=== PATIENT | female | born 1985 | race Caucasian/White ===

== ENCOUNTER 2021-07-28 09:27 | Emergency (ER) | payer SELFPAY ==
[2021-07-28 09:30] VITALS: BP 169/96; PULSE 94; RESP 18; TEMP 36.8; O2SAT 94; BMI 37.3
--- NOTE | 2021-07-28 10:16 | HMH.EDUTC ---
[facility] Disposition Clinical Impression: COVID-19 virus test result unknown, Wheezing Disposition: Home, Self-Care Condition on Discharge: Good Instructions: How to Care for Someone with COVID-19, DI for COVID-19 (Suspected or Confirmed ) Additional Instructions: covid swab was sent to lab, call later today for results. self isolate until test results are known to be negative No sign of a bacterial infection. Likely viral. Viruses can take 7-14 days to run their course. Nasal saline and bulb syringe or nose Leticia to remove nasal drainage to help with nasal congestion. Hard to eat, drink, sleep with nasal congestion so important to keep this cleaned out. Monitor temp. Tylenol or Motrin as needed for pain or fever Encourage fluids, water, Gatorade, Powerade, Pedialyte if /toddler/child Warm salt water gargles Warm fluids Sore throat lozenges Sleep elevated Humidifier/vaporizer Follow-up immediately for new or worsening symptoms or no noticeable improvement over the next 48-72 hours. Prescriptions: Albuterol Sulfate [Albuterol 0.083% 2.5mg/3mL neb] 2.5 mg IH Q6 PRN 30 Days #1 kit PRN Reason: Wheezing Transmission Status: [facility] predniSONE [Prednisone 20mg Tab] 20 mg PO BID #10 tab Transmission Status: [facility] Referrals: Susan East [Primary Care Provider] - Time of Disposition: 10:24 Medical Decision Making - Kennedy Inquiry Pt receiving controlled substance: No Vital Signs: 07/28/21 09:30 Temperature 98.2 F Temperature Source Oral Pulse Rate [Right Brachial] 94 H Respiratory Rate 18 Blood Pressure [Right Arm] 169/96 H Blood Pressure Mean [Right Arm] 120 Blood Pressure Source [Right Arm] Automatic Cuff Blood Pressure Position [Right Arm] Sitting 02 Sat by Pulse Oximetry 94 L Oxygen Delivery Method Room Air Orders (Tests/Meds): ORDERS Category Date Time Status Covid-19 Nasal PCR ([facility]) Routine Lab 07/28/21 09:40 Received [facility] HPI - General Chief complaint: Urgent [facility] Stated complaint: soa, cough, congestion covid test Time Seen by Provider: 07/28/21 10:16 Mode of Arrival: Ambulatory Source of Information: Patient Limitations: No Limitations Description of Symptoms (Recalled from Triage Doc. by RN): COVID TEST D/T EXPOSURE. C/O COUGH, SOA AND CONGESTION HEENT Symptoms (Recalled from RN notes): Yes Resp Symptoms (Recalled from RN notes): Yes Skin Symptoms (Recalled from RN notes): No MS Symptoms (Recalled from RN notes): No Functional Status (Recalled from RN notes): WNL - History of Present Illness Provider Complaint: 36 yr old female presents for cough,soa,wheezing,nasal congestion and runny nose. has been exposed to covid - Related Data Previous Rx's Medication Instructions Recorded Acetaminophen 1,000 mg PO TID PRN #60 tab 01/28/20 Ibuprofen [Ibuprofen 600mg 600 mg PO Q6H #30 tab 01/28/20 Tablet] Sulfamethoxazole/Trimethoprim 1 each PO BID #20 tab 01/28/20 [Bactrim DS tablet] cephALEXin [cephALEXin 500mg 500 mg PO Q8H #30 cap 01/28/20 capsule*] Albuterol Sulfate [Albuterol 2.5 mg IH Q6 PRN 30 Days #1 kit 07/28/21 0.083% 2.5mg/3mL neb] predniSONE [Prednisone 20mg 20 mg PO BID #10 tab 07/28/21 Tab] Allergies Allergy/AdvReac Type Severity Reaction Status Date / Time No Known Allergies Allergy Verified 07/28/21 10:14 - Worker's Comp Is this a Worker's Comp case?: No [facility] History - Hepatitis A Screen Drug use history?: No High risk sexual behaviors?: No History of sexually transmitted infection?: No Currently employed?: No Childcare worker?: No Do you have indoor plumbing?: Yes Do you have electricity?: Yes Attestation statement:: This patient has been screened for Hepatitis A risk factors. I have reviewed the patient's past medical history: Yes - Social History Alcohol Intake: never Occupational Status: employed Housing: house ROS Obtain
[2021-07-28 10:20] VITALS: BP 169/96; PULSE 94; RESP 18; TEMP 36.8; O2SAT 94
== END 2021-07-28 10:27 | disposition home or self-care (01) ==
PROVIDERS: Emergency Provider Nurse Practitioner Family; PCP Family Medicine
DX: Z20.822 Contact with and (suspected) exposure to COVID-19 (principal)
CPT/HCPCS: 99202; G0463; U0003

== ENCOUNTER 2021-11-05 03:41 | Emergency (ER) | payer SELFPAY ==
[2021-11-05 03:42] VITALS: BP 177/111; PULSE 97; RESP 18; TEMP 37.1; O2SAT 99; BMI 41.1
[2021-11-05 04:03] VITALS: BMI 41.1
--- NOTE | 2021-11-05 04:04 | CT_ITS ---
PROCEDURE INFORMATION: Exam: CT Maxillofacial With Contrast Exam date and time: 11/05/2021 4:04 AM Age: 36 years old Clinical indication: Mass, lump, or swelling; Maxilla; Patient HX: Left sided facial swelling TECHNIQUE: Imaging protocol: Computed tomography images of the face with intravenous contrast. Radiation optimization: All CT scans at this facility use at least one of these dose optimization techniques: automated exposure control; mA and/or kV adjustment per patient size (includes targeted exams where dose is matched to clinical indication); or iterative reconstruction. Contrast material: ISOVUE; Contrast volume: 75 ml; Contrast route: IV; COMPARISON: MAXW CT MAXILLOFACIAL W/CONTRAST 10/13/2017 12:06 AM FINDINGS: Orbital cavity: Orbits are normal. Globes are unremarkable. Bones/joints: No acute fracture. Paranasal sinuses: Left greater than right maxillary and ethmoid sinusitis. Soft tissues: Localized left facial and perimandibular swelling and induration. No underlying fluid collection or mass. Dental: Bilateral upper missing teeth with bicuspid and pre molar caries. IMPRESSION: 1. Localized probable inflammatory changes involving the left facial and perimandibular region consistent with cellulitis. No definite soft tissue abscess. 2. Bilateral upper missing teeth with bicuspid and pre molar caries. Dental correlation recommended. 3. Left greater than right maxillary and ethmoid sinusitis.
--- NOTE | 2021-11-05 04:19 | HMH.EDSKAF ---
ED Disposition Clinical Impression: Facial cellulitis, SIRS (systemic inflammatory response syndrome) Hypertension Qualifiers: Hypertension type: primary hypertension Qualified Code(s): I10 - Essential (primary) hypertension Disposition: Home, Self-Care Condition on Discharge: Good Instructions: DI for Cellulitis -- Adult Additional Instructions: use meds and see pcp for follow up Prescriptions: cephALEXin [cephALEXin 500mg capsule*] 500 mg PO TID #30 cap Transmission Status: Pending to [facility] clindamycin HCL [Clindamycin HCl] 300 mg PO TID #30 cap Transmission Status: Pending to [facility] Referrals: Susan Tracy [Primary Care Provider] - - Critical Care Critical Care Time: No Attestation: On 11/05/21, the high probability of a clinically significant, sudden or life threatening deterioration of the following system(s) required my full and direct attention, intervention and personal management. The time I documented below is in addition to time spent performing reported procedures but includes the following listed in this critical care notation. Medical Decision Making - Medical Records Medical records reviewed: Yes: I reviewed the patient's medical records. - Kennedy Inquiry Pt receiving controlled substance: No Vital Signs: 11/05/21 03:42 11/05/21 04:33 11/05/21 06:28 Temperature 98.8 F Temperature Source Oral Pulse Rate 83 83 Pulse Rate [Apical] 97 H Respiratory Rate 18 Blood Pressure 168/105 H Blood Pressure [Right Arm] 177/111 H Blood Pressure Mean [Right Arm] 133 Blood Pressure Source [Right Arm] Automatic Cuff Blood Pressure Position [Right Arm] Sitting 02 Sat by Pulse Oximetry 99 96 95 Oxygen Delivery Method Room Air Room Air Room Air - Lab Data Lab results reviewed: Yes: I reviewed the patient's lab results. Lab Results 11/05/21 04:14: WBC 16.1 H, RBC 5.21, Hgb 15.6, Hct 45.0, MCV 86.4, MCH 29.9, MCHC 34.6, RDW 12.6, Plt Count 348, MPV 6.8 L, Neut % (Auto) 73.6, Lymph % (Auto) 19.7, [place] % (Auto) 4.4, Eos % (Auto) 1.7, Baso % (Auto) 0.6, Neut # (Auto) 11.8 H, Lymph # (Auto) 3.2, [place] # (Auto) 0.7, Eos # (Auto) 0.3, Baso # (Auto) 0.1, Total Counted 100, Neutrophils % (Manual) 73, Band Neutrophils % 1.0, Lymphocytes % (Manual) 21, Monocytes % (Manual) 5, Platelet Estimate Normal, RBC Morphology Normal, ESR 15 11/05/21 04:14: Sodium 136, Potassium 3.8, Chloride 104, Carbon Dioxide 26, Anion Gap 9.8, BUN 5 L, Creatinine 0.50 L, Estimated Creat Clear 262, Estimated GFR 138, Est GFR ( Amer) 167, Glucose 107 H, Calcium 8.9, Total Bilirubin 0.6, AST 29, ALT 29, Alkaline Phosphatase 76, C-Reactive Protein 21.5 H, Total Protein 6.9, Albumin 4.0, Globulin 2.9, Albumin/Globulin Ratio 1.4, Procalcitonin 0.040 11/05/21 04:14: Serum HCG, Qual Negative Result diagrams: 11/05/21 04:14 11/05/21 04:14 Orders (Tests/Meds): ED MEDICATIONS Generic Name Dose Route Start Last Admin Trade Name Freq PRN Reason Stop Dose Admin Sodium Chloride 1,000 mls @ 999 mls/hr 11/05/21 04:15 11/05/21 04:21 Sod Chlor 0.9% 1000ml Bag IV 11/05/21 05:15 999 mls/hr .Q1H1M JOSELITO Administration Ceftriaxone Sodium 1 gm/ 50 mls @ 100 mls/hr 11/05/21 06:30 11/05/21 06:31 Sodium Chloride IV 11/19/21 06:29 100 mls/hr Q24H JOSELITO Administration Discontinued Medications Generic Name Dose Route Start Last Admin Trade Name Freq PRN Reason Stop Dose Admin Iopamidol 75 ml 11/05/21 05:29 11/05/21 05:31 Iopamidol-370 (76%);100ml Bottle IV 11/05/21 05:30 75 ml ONCE ONE Administration Ketorolac Tromethamine 30 mg 11/05/21 04:04 11/05/21 04:21 Ketorolac 30mg/Ml Vial IV 11/05/21 04:05 30 mg ONCE ONE Administration Methylprednisolone Sodium Succinate 125 mg 11/05/21 04:04 11/05/21 04:21 Methylprednisolone Sod Succ 125mg Vial IV 11/05/21 04:05 125 mg ONCE ONE Administration Sodium Chloride 10 ml 11/05/21 05:29 11/05/21 05:32
[2021-11-05 04:28] LABS: Basophils # 0.1 K/mm3 (0-0.2); Basophils % 0.6 % (0.1-2.0); Eosinophils # 0.3 K/mm3 (0.0-0.4); Eosinophils % 1.7 % (0.1-12.0); Hemoglobin 15.6 g/dL (12.2-16.2); Lymphocytes # 3.2 K/mm3 (0.7-4.5); Lymphocytes % 19.7 % (10-50); Mean Corpuscular HGB Conc 34.6 g/dL (31.8-35.4); Mean Corpuscular Hemoglobin 29.9 pg (27.0-31.2); Mean Corpuscular Volume 86.4 fl (81-99); Mean Platelet Volume 6.8 fl (7.4-10.4); Monocytes # 0.7 K/mm3 (0.1-1.0); Monocytes % 4.4 % (1.7-9.3); Neutrophils # 11.8 K/mm3 (1.8-7.8); Neutrophils % 73.6 % (37.0-80.0); Platelet Count 348 K/mm3 (142-424); Red Blood Count 5.21 M/mm3 (4.20-5.40); Red Cell Distribution Width 12.6 % (11.5-17.5); White Blood Count 16.1 K/mm3 (4.8-10.8)
[2021-11-05 04:33] VITALS: BP 168/105; PULSE 83; O2SAT 96
[2021-11-05 04:33] LABS: Alanine Aminotransferase 29 U/L (12-78); Albumin/Globulin Ratio 1.4 (1.1-1.8); Alkaline Phosphatase 76 U/L (38-126); Anion Gap 9.8 mEq/L (5-15); Aspartate Amino Transferase 29 U/L (14-36); Bilirubin,Total 0.6 mg/dl (0.2-1.3); Blood Urea Nitrogen 5 mg/dl (7-17); Calcium 8.9 mg/dl (8.4-10.2); Carbon Dioxide 26 mmol/L (22.0-30.0); Chloride 104 mmol/L (98-107); Creatinine Clearance Estimated 262 mL/min (50-200); Estimated Glomerular Filt Rate 138 ml/min (>60); GFR (African American) 167 ML/MIN (>60); Globulin 2.9 g/dL (1.3-3.2); Glucose 107 mg/dl (74-100); Potassium 3.8 mmoL/L (3.5-5.1); Sodium 136 mmol/L (136-145); Total Protein,Serum 6.9 g/dl (6.3-8.2)
[2021-11-05 04:38] LABS: C-Reactive Protein 21.5 mg/L (0-4)
[2021-11-05 04:39] LABS: MANUAL DIFFERENTIAL MANUAL DIFFERENTIAL (MANUAL DIFF)
[2021-11-05 04:55] LABS: HCG Qualitative, Serum Negative (Negative)
[2021-11-05 06:20] LABS: Lymphocytes % 21 % (10-50); Monocytes % 5 % (2-9); Neutrophils % 73 % (42-76); Platelet Estimate Normal; RBC Morphology Normal; Total Cells Counted 100
[2021-11-05 06:28] VITALS: PULSE 83; O2SAT 95
[2021-11-05 07:10] LABS: Erythrocyte Sedimentation Rate 15 mm/hr (0-20)
[2021-11-05 07:30] VITALS: BP 160/96; PULSE 82; RESP 18; TEMP 36.8; O2SAT 95
[2021-11-05 07:44] VITALS: BP 178/100; PULSE 88; RESP 20; TEMP 36.8; O2SAT 98
== END 2021-11-05 07:44 | disposition home or self-care (01) ==
PROVIDERS: Emergency Provider Emergency Medicine; PCP Family Medicine
DX: L03.211 Cellulitis of face (principal); I10 Essential (primary) hypertension; R65.10 Systemic inflammatory response syndrome (SIRS) of non-infectious origin without acute organ dysfunction
CPT/HCPCS: 70487; 80053; 84145; 84703; 85007; 85025; 85651; 86140; 96365; 96367; 96375; 99283; Q9967

== ENCOUNTER 2021-11-07 09:17 | Emergency (ER) | payer SELFPAY ==
[2021-11-07 10:33] VITALS: BP 148/96; PULSE 84; RESP 19; TEMP 37; O2SAT 98; BMI 36.6
--- NOTE | 2021-11-07 10:47 | HMH.EDUTC ---
[facility] Disposition Clinical Impression: Facial cellulitis Disposition: Home, Self-Care Condition on Discharge: Good Instructions: Cellulitis, Clindamycin and Benzoyl Peroxide Topical, Clindamycin, Cephalexin Additional Instructions: *Take antibiotic(s) and be sure to take as ordered for the FULL length of time although you may be feeling better or start to see improvement in the next 24-48 hours *Monitor closely. Outlined redness so that you can monitor easier. Follow up immediately for new or worsening symptoms including but not limited to redness, swelling, streaking from site fever or chills. *Warm compress 15 minutes 3-4 times day *Never squeeze or pop these on your own. Seek immediate medical attention next time this occurs *Monitor Temp. Tylenol every 4 hours as needed and ibuprofen every 6 hours as needed (as long as your primary care doctor has told you that it is ok to take both. For fever, aches, pain. ER if no less that 101 despite Tylenol and ibuprofen Follow up with your family doctor/primary care physician in the next 48-72 hours if no improvement Make sure to follow up with Dentist Go straight to ER if any worsening of swelling in or around eye Follow up with your Family Doctor if no improvement in the next 48-72 hours and to ER if any worsening Referrals: Susan Tracy [Primary Care Provider] - As needed Forms: Work/School Release Time of Disposition: 10:56 Medical Decision Making - Kennedy Inquiry Pt receiving controlled substance: No Kennedy was queried for this patient: No Vital Signs: 11/07/21 10:33 11/07/21 11:04 Temperature 98.6 F 98.6 F Temperature Source Oral Oral Pulse Rate 84 Pulse Rate [Right Radial] 84 Respiratory Rate 19 18 Blood Pressure 148/96 H Blood Pressure [Right Arm] 148/96 H Blood Pressure Mean [Right Arm] 113 Blood Pressure Source Automatic Cuff Blood Pressure Source [Right Arm] Automatic Cuff Blood Pressure Position Sitting Blood Pressure Position [Right Arm] Sitting 02 Sat by Pulse Oximetry 98 Oxygen Delivery Method Room Air Room Air Medical Decision Narrative: Patient states that this morning her swelling was worse but has gone down now Patient had pictures of when she first came to the ED and verses now swelling appears improved Patient states that she has been on oral antibiotics for 1 1/2 days but swelling in much improved at this time and she was having pain in her face and wanted to get something discussed Ibuprofen and patient states that she has some at home Patient educated to follow up and if any worsening of swelling needed to return immediately to the ED [facility] HPI - General Stated complaint: facial cellulitis Time Seen by Provider: 11/07/21 10:47 Mode of Arrival: Ambulatory Source of Information: Patient Limitations: No Limitations Description of Symptoms (Recalled from Triage Doc. by RN): Pt stated that she has facial swelling left eye, and upper lip. She seen dione, and has been on cephalexin. HEENT Symptoms (Recalled from RN notes): Yes Resp Symptoms (Recalled from RN notes): No Skin Symptoms (Recalled from RN notes): Yes MS Symptoms (Recalled from RN notes): No Functional Status (Recalled from RN notes): n/a - History of Present Illness Provider Complaint: Patient states that she was seen in the ED on the States that she was having some facial cellulitis and swelling States that she was given IV antibiotics and started on oral antibiotics but she thought it would look better by now she is still having some swelling in the left side of face States that also she has been having some pain there States that swelling is improved since she got up this morning and got moving around but was worried so she came in - Related Data Home Medications Medication Instructions Recorded Confirmed Acetaminophen 1,000 mg PO TID PRN 11/05/21 11/07/21 Ibuprofen [Ibuprofen 600mg 600 mg PO Q6H 11/05/21 11/07/21 Tablet] cephALEXin [cephALEXin 500mg 500
[2021-11-07 11:04] VITALS: BP 148/96; PULSE 84; RESP 18; TEMP 37; O2SAT 98
== END 2021-11-07 11:04 | disposition home or self-care (01) ==
PROVIDERS: Emergency Provider Nurse Practitioner; PCP Family Medicine
DX: L03.211 Cellulitis of face (principal); F17.210 Nicotine dependence, cigarettes, uncomplicated
CPT/HCPCS: 99202; G0463

== ENCOUNTER → 2021-12-31 09:34 | Outpatient (CLI) | payer OTHER, SELFPAY ==
[2022-01-01 08:24] LABS: Covid-19 Nasal PCR Sendout Lex POSITIVE
== END ==
PROVIDERS: Visit Provider Nurse Practitioner
DX: U07.1 COVID-19 (principal)
CPT/HCPCS: C9803; U0004; U0005

== ENCOUNTER → 2022-03-21 15:08 | Outpatient (CLI) | payer BC, SELFPAY ==
--- NOTE | 2022-03-21 15:16 | US_ITS ---
FINAL REPORT CLINICAL HISTORY: MENORRHAGIA WITH REGULAR CYCLE FINDINGS: Transvaginal sonographic images of the pelvis were obtained. The uterus measures 9.4 x 6.0 x 7.6 cm. There are at least 2 uterine fibroids measuring 3.1 and 3.0 cm. There is endometrial thickness measuring 13 mm which is in the upper limits of normal. The right ovary measures 2.9 x 2.0 x 2.8 cm. The left ovary measures 4.0 by 2.6 x 2.6 cm. No free fluid or adnexal mass is identified. IMPRESSION: Fibroid uterus. Reviewed, Interpreted and Dictated by Gelacio Erwin III, MD Transcribed by Martha Brito Authenticated by Gelacio Erwin III, MD on 03/24/2022 08:04:23 AM [facility]
== END ==
LOC: RAD 15:09
PROVIDERS: PCP Family Medicine; Visit Provider Nurse Practitioner
DX: N92.0 Excessive and frequent menstruation with regular cycle (principal)
CPT/HCPCS: 76830

== ENCOUNTER → 2022-03-24 16:25 | Outpatient (CLI) | payer BC, SELFPAY ==
[2022-03-24 17:37] LABS: Hemoglobin A1C 5.7 % (4.0-6.0)
[2022-03-24 18:04] LABS: Alanine Aminotransferase 37 U/L (12-78); Albumin Level 4.4 g/dl (3.5-5.0); Albumin/Globulin Ratio 1.7 (1.1-1.8); Alkaline Phosphatase 76 U/L (38-126); Anion Gap 12.8 mEq/L (5-15); Aspartate Amino Transferase 25 U/L (14-36); Bilirubin,Total 0.4 mg/dl (0.2-1.3); Blood Urea Nitrogen 11 mg/dl (7-17); Calcium 9.7 mg/dl (8.4-10.2); Carbon Dioxide 26 mmol/L (22.0-30.0); Chloride 102 mmol/L (98-107); Cholesterol 245 mg/dl (140-200); Estimated Glomerular Filt Rate 178 ml/min (>60); GFR (African American) 215 ML/MIN (>60); Globulin 2.6 g/dL (1.3-3.2); Glucose 92 mg/dl (74-100); HDL Cholesterol 35 mg/dl (40-60); Potassium 3.8 mmoL/L (3.5-5.1); Sodium 137 mmol/L (136-145); Triglycerides 281 mg/dl (30-150); VLDL Cholesterol 56 mg/dL (0-40)
[2022-03-24 18:05] LABS: Basophils # 0.2 K/mm3 (0-0.2); Basophils % 1.1 % (0.1-2.0); Eosinophils # 0.1 K/mm3 (0.0-0.4); Eosinophils % 0.4 % (0.1-12.0); Hematocrit 46.4 % (37.0-47.0); Hemoglobin 16.2 g/dL (12.2-16.2); Lymphocytes % 28.2 % (10-50); Mean Corpuscular Hemoglobin 30.1 pg (27.0-31.2); Mean Corpuscular Volume 86.1 fl (81-99); Mean Platelet Volume 7.9 fl (7.4-10.4); Monocytes # 0.5 K/mm3 (0.1-1.0); Monocytes % 3.6 % (1.7-9.3); Neutrophils # 9.4 K/mm3 (1.8-7.8); Neutrophils % 66.6 % (37.0-80.0); Platelet Count 418 K/mm3 (142-424); Red Blood Count 5.39 M/mm3 (4.20-5.40); Red Cell Distribution Width 13.8 % (11.5-17.5); White Blood Count 14.1 K/mm3 (4.8-10.8)
[2022-03-24 18:15] LABS: Direct LDL Cholesterol 138.52 mg/dL (100-129)
[2022-03-24 18:31] LABS: 25-OH Vitamin D, Total < 12.8 ng/mL (30-100)
[2022-03-24 18:34] LABS: Thyroid Stimulating Hormone 1.28 uIU/mL (0.465-4.68)
[2022-03-24 18:53] LABS: Vitamin B12 402 pg/mL (239-931)
[2022-03-26 09:24] LABS: FSH 3.2 mIU/mL (.); LH 6.1 mIU/mL (.)
[2022-03-29 01:10] LABS: Estrogen 487 pg/mL (.)
== END ==
LOC: LAB 16:26
PROVIDERS: Visit Provider Nurse Practitioner
DX: N92.0 Excessive and frequent menstruation with regular cycle (principal); E55.9 Vitamin D deficiency, unspecified; Z13.21 Encounter for screening for nutritional disorder; Z13.29 Encounter for screening for other suspected endocrine disorder; Z13.1 Encounter for screening for diabetes mellitus; Z13.220 Encounter for screening for lipoid disorders
CPT/HCPCS: 36415; 80053; 80061; 82306; 82607; 82670; 82672; 83001; 83002; 83036; 84443; 85025

== ENCOUNTER 2022-06-27 20:21 | Emergency (ER) | payer BC, SELFPAY ==
[2022-06-27 20:36] VITALS: BP 180/110; PULSE 80; RESP 18; TEMP 36.8; O2SAT 99; BMI 37.4
--- NOTE | 2022-06-27 21:15 | HMH.EDEXTP ---
ED Disposition Clinical Impression: Cellulitis Qualifiers: Site of cellulitis: extremity Site of cellulitis of extremity: lower extremity Laterality: right Qualified Code(s): L03.115 - Cellulitis of right lower limb Disposition: Home, Self-Care Condition on Discharge: Good Instructions: Cellulitis Additional Instructions: We will attempt to treat this as a cellulitis in your foot. You will need to follow-up closely with your primary care physician for a right lower extremity ultrasound. Please return to the ED immediately if you get any shortness of breath or chest pain. Prescriptions: Sulfamethoxazole/Trimethoprim [Bactrim DS tablet] 1 each PO BID #10 tab Transmission Status: Received by [facility] Referrals: Doris Prescott APRN [Primary Care Provider] - - Critical Care Critical Care Time: No Attestation: On 06/27/22, the high probability of a clinically significant, sudden or life threatening deterioration of the following system(s) required my full and direct attention, intervention and personal management. The time I documented below is in addition to time spent performing reported procedures but includes the following listed in this critical care notation. Medical Decision Making - Kennedy Inquiry Pt receiving controlled substance: No Kennedy was queried for this patient: No Vital Signs: 06/27/22 20:36 Temperature 98.3 F Temperature Source Oral Pulse Rate [Apical] 80 Respiratory Rate 18 Blood Pressure [Right Arm] 180/110 H Blood Pressure Mean [Right Arm] 133 Blood Pressure Source [Right Arm] Automatic Cuff Blood Pressure Position [Right Arm] Sitting 02 Sat by Pulse Oximetry 99 Oxygen Delivery Method Room Air - Lab Data Lab results reviewed: Yes: I reviewed the patient's lab results. Lab Results 06/27/22 21:40: WBC 13.5 H, RBC 5.10, Hgb 15.0, Hct 45.7, MCV 89.6, MCH 29.4, MCHC 32.8, RDW 13.3, Plt Count 351, MPV 7.3 L, Neut % (Auto) 64.5, Lymph % (Auto) 29.7, [place] % (Auto) 2.9, Eos % (Auto) 1.8, Baso % (Auto) 1.0, Neut # (Auto) 8.7 H, Lymph # (Auto) 4.0, [place] # (Auto) 0.4, Eos # (Auto) 0.3, Baso # (Auto) 0.1, ESR 5 06/27/22 21:40: D-Dimer 0.60 H 06/27/22 21:40: Sodium 138, Potassium 3.4 L, Chloride 105, Carbon Dioxide 29, Anion Gap 7.4, BUN 9, Creatinine 0.50 L, Estimated Creat Clear 243, Estimated GFR 137, Est GFR ( Amer) 166, Glucose 106 H, Calcium 8.9, Total Bilirubin 0.2, AST 30, ALT 29, Alkaline Phosphatase 83, C-Reactive Protein 5.8 H, Total Protein 6.6, Albumin 3.9, Globulin 2.7, Albumin/Globulin Ratio 1.4 Result diagrams: 06/27/22 21:40 06/27/22 21:40 Medical Decision Narrative: In review this is a 37-year-old female who presents with right foot swelling. Hemodynamically stable and nontoxic-appearing. Vitals are normal and she is not tachycardic. Her physical exam shows no evidence of lower leg swelling or tenderness but does have some very minimal swelling and erythema to her right foot. This could be consistent with a cellulitis but I do not think it is completely unreasonable to try to rule out possible DVT with D-dimer. D-dimer was elevated at 0.6 which is just barely over normal. This could be due to an inflammatory response especially in the setting of her having a white count of 13. I had a shared discussion with the patient about whether or not to start her on a anticoagulation at this time and she would like to elect to go with antibiotics at this time to see if it is truly just a cellulitis and hold off on anticoagulation. I think this is reasonable if we have her follow-up on Thursday with her PCP in order to set up an ultrasound to evaluate her right lower extremity and I gave her extremely strict return precautions. At this point stable for discharge. Return precautions given. Extremity Problem HPI - General Chief complaint: Extremity Injury, Lower Stated complaint: Possible Blood Clot R Leg Time Seen by Provider: 06/27/22 20:40 Mode of Arrival: Ambulatory
[2022-06-27 21:49] LABS: Basophils # 0.1 K/mm3 (0-0.2); Eosinophils # 0.3 K/mm3 (0.0-0.4); Eosinophils % 1.8 % (0.1-12.0); Hematocrit 45.7 % (37.0-47.0); Lymphocytes % 29.7 % (10-50); Mean Corpuscular HGB Conc 32.8 g/dL (31.8-35.4); Mean Corpuscular Hemoglobin 29.4 pg (27.0-31.2); Mean Corpuscular Volume 89.6 fl (81-99); Mean Platelet Volume 7.3 fl (7.4-10.4); Monocytes # 0.4 K/mm3 (0.1-1.0); Monocytes % 2.9 % (1.7-9.3); Neutrophils # 8.7 K/mm3 (1.8-7.8); Neutrophils % 64.5 % (37.0-80.0); Platelet Count 351 K/mm3 (142-424); Red Cell Distribution Width 13.3 % (11.5-17.5); White Blood Count 13.5 K/mm3 (4.8-10.8)
[2022-06-27 22:02] LABS: Alanine Aminotransferase 29 U/L (12-78); Aspartate Amino Transferase 30 U/L (14-36); Blood Urea Nitrogen 9 mg/dl (7-17); Calcium 8.9 mg/dl (8.4-10.2); Carbon Dioxide 29 mmol/L (22.0-30.0); Creatinine Clearance Estimated 243 mL/min (50-200); Estimated Glomerular Filt Rate 137 ml/min (>60); GFR (African American) 166 ML/MIN (>60); Glucose 106 mg/dl (74-100)
[2022-06-27 22:04] LABS: Albumin Level 3.9 g/dl (3.5-5.0); Albumin/Globulin Ratio 1.4 (1.1-1.8); Alkaline Phosphatase 83 U/L (38-126); Anion Gap 7.4 mEq/L (5-15); Bilirubin,Total 0.2 mg/dl (0.2-1.3); Chloride 105 mmol/L (98-107); Globulin 2.7 g/dL (1.3-3.2); Potassium 3.4 mmoL/L (3.5-5.1); Sodium 138 mmol/L (136-145); Total Protein,Serum 6.6 g/dl (6.3-8.2)
[2022-06-27 22:08] LABS: C-Reactive Protein 5.8 mg/L (0-4)
[2022-06-27 22:18] LABS: Erythrocyte Sedimentation Rate 5 mm/hr (0-20)
--- NOTE | 2022-06-27 22:42 | XR_ITS ---
PROCEDURE INFORMATION: Exam: XR Right Foot Exam date and time: 06/27/2022 10:38 PM Age: 37 years old Clinical indication: Swelling, leg or foot; Additional info: Concern for infection TECHNIQUE: Imaging protocol: Radiologic exam of the Right foot. Views: 3 or more views. COMPARISON: No relevant prior studies available. FINDINGS: Bones/joints: Large calcaneal spur. No acute fracture or dislocation. Soft tissues: No radiopaque foreign body. IMPRESSION: No acute osseous abnormality. If there is concern for osteomyelitis or soft tissue infection, MRI is recommended for further evaluation.
--- NOTE | 2022-06-27 23:00 | PC.NURSE ---
PT ambulatory to bathroom with no assistance.
[2022-06-27 23:33] VITALS: BP 135/78; PULSE 87; RESP 19; TEMP 36.8; O2SAT 98
== END 2022-06-27 23:42 | disposition home or self-care (01) ==
PROVIDERS: Emergency Provider Student in an Organized Health Care Education/Training Program; PCP Nurse Practitioner
DX: L03.115 Cellulitis of right lower limb (principal); J45.909 Unspecified asthma, uncomplicated; Z72.0 Tobacco use
CPT/HCPCS: 73630; 80053; 85025; 85378; 85651; 86140; 99213; G0463

== ENCOUNTER → 2023-04-02 23:08 | Outpatient (CLI) | payer BC, SELFPAY | LOC: LAB.DROPOF 23:08 | PROVIDERS: PCP Nurse Practitioner; Visit Provider Nurse Practitioner | DX: J06.9 Acute upper respiratory infection, unspecified (principal) | CPT/HCPCS: C9803; U0003; U0005 ==

== ENCOUNTER → 2023-06-11 16:33 | Outpatient (CLI) | payer BC, SELFPAY ==
[2023-06-11 18:34] LABS: Basophils # 0.1 K/mm3 (0-0.2); Eosinophils # 0.2 K/mm3 (0.0-0.4); Hemoglobin 15.2 g/dL (12.2-16.2); Monocytes # 0.5 K/mm3 (0.1-1.0)
[2023-06-11 19:00] LABS: Alanine Aminotransferase 36 U/L (12-78); Albumin Level 4.3 g/dl (3.5-5.0); Albumin/Globulin Ratio 1.6 (1.1-1.8); Alkaline Phosphatase 81 U/L (38-126); Anion Gap 14.6 mEq/L (5-15); Aspartate Amino Transferase 29 U/L (14-36); Bilirubin,Total 0.2 mg/dl (0.2-1.3); Blood Urea Nitrogen 11 mg/dl (7-17); Calcium 9.4 mg/dl (8.4-10.2); Carbon Dioxide 24 mmol/L (22.0-30.0); Chloride 103 mmol/L (98-107); Estimated Glomerular Filt Rate 93 ml/min (>60); GFR (African American) 112 ML/MIN (>60); Globulin 2.7 g/dL (1.3-3.2); Glucose 115 mg/dl (74-100); Potassium 3.6 mmoL/L (3.5-5.1); Sodium 138 mmol/L (136-145)
[2023-06-11 19:12] LABS: Basophils % 0.4 % (0.1-2.0); Eosinophils % 1.3 % (0.1-12.0); Hematocrit 45.3 % (37.0-47.0); Lymphocytes # 3.8 K/mm3 (0.7-4.5); Mean Corpuscular HGB Conc 33.5 g/dL (31.8-35.4); Mean Corpuscular Hemoglobin 29.6 pg (27.0-31.2); Mean Corpuscular Volume 88.3 fl (81-99); Monocytes % 3.7 % (1.7-9.3); Neutrophils # 8.2 K/mm3 (1.8-7.8); Neutrophils % 64.5 % (37.0-80.0); Platelet Count 367 K/mm3 (142-424); Red Blood Count 5.13 M/mm3 (4.20-5.40); Red Cell Distribution Width 12.8 % (11.5-17.5); White Blood Count 12.7 K/mm3 (4.8-10.8)
[2023-06-11 19:32] LABS: Thyroid Stimulating Hormone 1.28 uIU/mL (0.465-4.68)
[2023-06-11 19:51] LABS: Vitamin B12 443 pg/mL (239-931)
[2023-06-11 20:34] LABS: 25-OH Vitamin D, Total 27.1 ng/mL (30-100)
[2023-06-11 21:00] LABS: Hemoglobin A1C 5.4 % (4.0-6.0)
== END ==
LOC: LAB.DROPOF 06-12 06:43
PROVIDERS: PCP Nurse Practitioner; Visit Provider Nurse Practitioner
DX: I10 Essential (primary) hypertension (principal); E55.9 Vitamin D deficiency, unspecified; F41.9 Anxiety disorder, unspecified
CPT/HCPCS: 80053; 82306; 82607; 83036; 84443; 85025

== ENCOUNTER → 2023-09-17 22:35 | Outpatient (CLI) | payer BC, SELFPAY ==
[2023-09-17 20:26] LABS: Coronavirus 19, PCR Not Detected (NotDetected); Influenza A, PCR Not Detected (NotDetected); Influenza B, PCR Not Detected (NotDetected)
== END ==
LOC: LAB.DROPOF 22:36
PROVIDERS: PCP Nurse Practitioner; Visit Provider Nurse Practitioner
DX: J06.9 Acute upper respiratory infection, unspecified (principal); R51.9 Headache, unspecified; R06.2 Wheezing
CPT/HCPCS: 87636